=== PATIENT | female | born 2000 | race Caucasian/White ===

== ENCOUNTER 2019-08-26 17:34 | Emergency (ER) | payer BC ==
[~2019-08-26] VITALS: Ht 162.5 cm; Wt 81.6 kg
[~2019-08-26 17:34] MED LIST: AUGMENTIN 875-875 MG PO; MOTRIN400 MG PO
[2019-08-26] MEDS ORDERED: PENICILLIN VK500 MG PO (17:52)
== END 2019-08-26 18:20 | disposition home or self-care (01) ==
LOC: ED 17:34
DX: K04.7 Periapical abscess without sinus (principal); R11.2 Nausea with vomiting, unspecified

== ENCOUNTER 2022-05-24 20:06 | Emergency (ER) | payer BC ==
[~2022-05-24] VITALS: Ht 162.5 cm; Wt 72.6 kg
[~2022-05-24 20:06] MED LIST changes: +PENICILLIN VK500 MG PO
[2022-05-24] MEDS ORDERED: PENICILLIN VK500 MG PO (20:28)
== END 2022-05-24 21:30 | disposition home or self-care (01) ==
LOC: ED 20:06
DX: K02.9 Dental caries, unspecified (principal)

== ENCOUNTER 2023-12-26 15:52 | Emergency (ER) | payer BC ==
[~2023-12-26] VITALS: Ht 162.5 cm; Wt 72.6 kg
== END 2023-12-26 17:34 | disposition left against medical advice (07) ==
LOC: ED 15:52
DX: M54.50 Low back pain, unspecified (principal); R10.2 Pelvic and perineal pain; Z53.21 Procedure and treatment not carried out due to patient leaving prior to being seen by health care provider